=== PATIENT | male | born 1955 | race Caucasian/White ===

== ENCOUNTER 2020-05-15 08:54 | Inpatient (IN) | payer OTHER ==
[~2020-05-15] VITALS: Ht 185.4 cm; Wt 134.8 kg
[2020-05-15] MEDS ORDERED: LORazepam 2 MG/ML VIAL ONE ×2 (08:57→09:11)
[2020-05-15] MEDS ORDERED: ROCURONIUM BROMIDE 10 MG/ML 5 ML VIAL ONE (09:13)
[2020-05-15] MEDS ORDERED: IOVERSOL 350 MG/ML 150 ML VIAL ONE (09:13)
[2020-05-15] MEDS ORDERED: SODIUM CHLORIDE 0.9% 100 ML ONE (09:14)
[2020-05-15] MEDS ORDERED: FURO20 PO (09:14)
[2020-05-15] MEDS ORDERED: LISI-660 PO (09:14)
[2020-05-15 09:17] LABS: BASOPHILS % (AUTO) 0.8 % (0.0-2.0); EOSINOPHILS % (AUTO) 2.2 % (1.0-6.0); HEMATOCRIT 35.7 % (41-53); HEMOGLOBIN 11.5 g/dL (13.5-17.5); LYMPHOCYTES # (AUTO) 3.5 K/uL (1.0-4.8); LYMPHOCYTES % (AUTO) 43.3 % (22.0-44.0); MEAN CORPUSCULAR HEMOGLOBIN 31.1 pg (26.0-34.0); MEAN CORPUSCULAR HGB CONC 32.2 G/dL (31.0-37.0); MEAN CORPUSCULAR VOLUME 97 fL (80-100); MONOCYTES # (AUTO) 1.3 K/uL (0.1-1.0); MONOCYTES % (AUTO) 16.4 % (2.0-9.0); NEUTROPHILS % (AUTO) 37.3 % (40.0-70.0); PLATELET COUNT (AUTO) 250 K/uL (150-450)
[2020-05-15 09:20] LABS: CREATININE 2.57 mg/dL (0.60-1.30); POTASSIUM 3.9 mmol/L (3.5-5.1)
[2020-05-15 09:29] LABS: INR 1.1 (0.9-1.1); PROTHROMBIN TIME 11.5 SEC (9.4-11.6)
[2020-05-15 09:46] LABS: ALBUMIN 3.5 g/dL (3.4-5.0); BILIRUBIN,TOTAL 0.7 mg/dL (0.1-1.0); TOTAL PROTEIN, SERUM 7.6 g/dL (6.4-8.2)
[2020-05-15] MEDS ORDERED: PROPOFOL 1000 MG/ISO-OSM 100 ML IV ONE (09:53)
[2020-05-15 10:14] LABS: ABG A-A DIFF O2 498.4 mmHg (10-20.0); ABG BASE EXCESS -3.4 mmol/L (-2.0-3.0); ABG CARBOXYHEMOGLOBIN 0.4 % (0.0-1.5); ABG HCO3 21.5 mmol/L (22.0-26.0); ABG METHEMOGLOBIN 0.4 % (0.0-1.5); ABG OXYGEN CONTENT 16.1 mL/dL (15.0-23.0); ABG OXYHEMOGLOBIN 98.2 % (94.0-100.0); ABG PCO2 49 mmHg (35-45); ABG PH 7.293 (7.35-7.450); ABG TOTAL HEMOGLOBIN 11.4 G/dL (12.0-18.0); PO2, ARTERIAL BG 165.7 mmHg (79.0-87.0); SITE, BLOOD GAS RT RADIAL; SOURCE, BLOOD GAS ARTERIAL; TEMPERATURE, FAHRENHEIT, BG 98.6 FAHREN (96.0-98.6)
[2020-05-15 10:15] LABS: O2 DEVICE,BLOOD GAS VENTILATOR (ROOM AIR); PEEP,BG 5 cm H2O; VT, ABG 530 ml
[2020-05-15] MEDS ORDERED: LevETIRAcetam 1,000 MG in DEXTROSE 5%-WATER 100 ML IV ONE (10:15)
[2020-05-15] MEDS ORDERED: ASPIRIN 600 MG RECTAL SUPPOSITORY PR ONE (10:15)
[2020-05-15] MEDS ORDERED: LORazepam 2 MG/ML VIAL IM ONE (10:15)
[2020-05-15] MEDS ORDERED: SUCCINYLCHOLINE CHLORIDE 20 MG/ML 10 ML VIAL IVP ONE (10:15)
[2020-05-15] MEDS ORDERED: ETOMIDATE 2 MG/ML 10 ML VIAL IVP ONE (10:15)
[2020-05-15] MEDS ORDERED: LORazepam 2 MG/ML VIAL IVP ONE (10:15)
[2020-05-15] MEDS: PROPOFOL 1000 MG/ISO-OSM 100 ML IV PRN ×2 (10:20→13:21)
[2020-05-15] MEDS: NOREPINEPHRINE 4 MG/D5%-WATER 250 ML IV PRN ×2 (10:52→13:22)
[2020-05-15] MEDS ORDERED: DOPamine HCL 400 MG/D5%-WATER 250 ML IV ONE (11:10)
[2020-05-15] MEDS ORDERED: ATROPINE SULFATE 0.1 MG/ML 10 ML SYRINGE IVP ONE ×3 (11:10→11:15)
[2020-05-15] MEDS ORDERED: MIDAZOLAM HCL 100 MG in DEXTROSE 5%-WATER 180 ML IV PRN (11:15)
[2020-05-15 11:27] LABS: APPEARANCE,URINE CLEAR (CLEAR); BILIRUBIN,URINE NEGATIVE (NEGATIVE); GLUCOSE, URINE (UA) NEGATIVE (NEGATIVE); KETONES,URINE NEGATIVE (NEGATIVE); LEUKOCYTE ESTERASE ,URINE NEGATIVE (NEGATIVE); NITRATE,URINE NEGATIVE (NEGATIVE); OCCULT BLOOD,URINE TRACE (NEGATIVE); PROTEIN,URINE NEGATIVE (NEGATIVE); UROBILINOGEN,URINE 0.2 mg/dL (<=1.0)
[2020-05-15 11:45] LABS: BACTERIA,URINE None Seen /HPF (None Seen); SQUAMOUS EPITHELIAL CELL,UR Few /LPF (None Seen)
[2020-05-15] MEDS: DOPamine HCL 400 MG/D5%-WATER 250 ML IV PRN ×2 (12:03→13:55)
[2020-05-15] MEDS ORDERED: CefTRIAXone 1 GM/DEXTROSE 50 ML IV ONE (12:30)
[2020-05-15] MEDS ORDERED: AZITHROMYCIN 500 MG/NS 250 ML IV ONE (12:30)
[2020-05-15 12:42] LABS: COVID AG,FIA SOURCE NASOPHARYNGEAL
[2020-05-15 13:00] VITALS: BP 88/66
[2020-05-15] MEDS ORDERED: SODIUM CHLORIDE 0.9% 500 ML IV ONE (13:18)
[2020-05-15 16:00] VITALS: BP 101/58
[2020-05-15] MEDS: RINGERS SOLUTION,LACTATED 1,000 ML IV SCH (17:44)
[2020-05-15] MEDS ORDERED: ACETAMINOPHEN 325 MG TABLET PO PRN (18:15)
[2020-05-15] MEDS ORDERED: ONDANSETRON HCL 4 MG/2 ML VIAL IVP PRN (18:15)
[2020-05-15] MEDS ORDERED: IPRATROPIUM BROMIDE 0.5 MG/2.5 ML NEB SOLUTION NEB PRN (18:15)
[2020-05-15] MEDS ORDERED: ALBUTEROL SULFATE 2.5 MG/0.5 ML NEB SOLUTION NEB PRN (18:15)
[2020-05-15] MEDS ORDERED: MORPHINE SULFATE 2 MG/ML SYRINGE IVP PRN (18:15)
[2020-05-15] MEDS ORDERED: CefTRIAXone 1 GM/DEXTROSE 50 ML IV SCH (18:15)
[2020-05-15] MEDS ORDERED: ZOLPIDEM TARTRATE 5 MG TABLET PO PRN (18:15)
[2020-05-15] MEDS ORDERED: MAGNESIUM HYDROXIDE SUSPENSION 30 ML UDCUP PO PRN (18:15)
[2020-05-15] MEDS ORDERED: HYDROCODONE/ACETAMINOPHEN 5-325 MG TABLET PO PRN (18:15)
[2020-05-15] MEDS ORDERED: AZITHROMYCIN 500 MG/NS 250 ML IV SCH (18:15)
[2020-05-15] MEDS ORDERED: BISACODYL 10 MG RECTAL RECTAL SUPPOSITORY PR PRN (18:15)
[2020-05-15] MEDS ORDERED: SODIUM CHLORIDE 0.9% 1,000 ML IV SCH (18:15)
[2020-05-15 20:00] VITALS: BP 119/50
[2020-05-15] MEDS: DOCUSATE SODIUM 100 MG CAPSULE PO SCH (21:10)
[2020-05-15] MEDS ORDERED: VANCOMYCIN HCL 1 GM/D5% WATER 200 ML IV ONE ×2 (21:30→23:30)
[2020-05-16] VITALS: BP 142/89
[2020-05-16] MEDS: HEPARIN SODIUM,PORCINE 5,000 UNITS/ML VIAL SQ SCH ×2 (00:26→08:34)
[2020-05-16] MEDS: PIPERACILLIN/TAZO 3.375 GM/D5W 50 ML IV SCH ×3 (00:39→12:23)
[2020-05-16] MEDS ORDERED: NOREPINEPHRINE 4 MG/D5%-WATER 250 ML IV PRN (01:15)
[2020-05-16] MEDS ORDERED: PROPOFOL 1000 MG/ISO-OSM 100 ML IV PRN (01:15)
[2020-05-16] MEDS ORDERED: MIDAZOLAM HCL 100 MG in DEXTROSE 5%-WATER 180 ML IV PRN (03:30)
[2020-05-16] MEDS ORDERED: SODIUM CHLORIDE 0.9% 250 ML IV ONE (05:31)
[2020-05-16 05:44] LABS: BASOPHILS % (AUTO) 0.8 % (0.0-2.0); EOSINOPHILS % (AUTO) 1.3 % (1.0-6.0); HEMATOCRIT 33.1 % (41-53); HEMOGLOBIN 10.9 g/dL (13.5-17.5); LYMPHOCYTES # (AUTO) 1.5 K/uL (1.0-4.8); LYMPHOCYTES % (AUTO) 22.7 % (22.0-44.0); MEAN CORPUSCULAR HEMOGLOBIN 31.2 pg (26.0-34.0); MEAN CORPUSCULAR HGB CONC 32.9 G/dL (31.0-37.0); MEAN CORPUSCULAR VOLUME 95 fL (80-100); MONOCYTES # (AUTO) 0.9 K/uL (0.1-1.0); MONOCYTES % (AUTO) 13.7 % (2.0-9.0); NEUTROPHILS # (AUTO) 4.1 K/uL (1.8-7.7); NEUTROPHILS % (AUTO) 61.5 % (40.0-70.0); PLATELET COUNT (AUTO) 207 K/uL (150-450); RED BLOOD CELL COUNT(AUTO) 3.49 MIL/uL (4.50-5.90); RED CELL DISTRIBUTION WIDTH 16.1 % (11.5-14.5)
[2020-05-16 06:02] LABS: ALBUMIN 3.1 g/dL (3.4-5.0); BILIRUBIN,TOTAL 0.7 mg/dL (0.1-1.0); CALCIUM, TOTAL 8.9 mg/dL (8.8-10.5); CREATININE 2.26 mg/dL (0.60-1.30); POTASSIUM 3.2 mmol/L (3.5-5.1); TOTAL PROTEIN, SERUM 6.9 g/dL (6.4-8.2)
[2020-05-16] MEDS: RINGERS SOLUTION,LACTATED 1,000 ML IV SCH (06:58)
[2020-05-16 08:00] VITALS: BP 134/74
[2020-05-16] MEDS: DOCUSATE SODIUM 100 MG CAPSULE PO SCH (09:00)
[2020-05-16] MEDS ORDERED: VANCOMYCIN HCL 1.5 GM in DEXTROSE 5%-WATER 250 ML IV ONE (09:30)
[2020-05-16 12:00] VITALS: BP 94/63
[2020-05-16] MEDS ORDERED: POTASSIUM CHL 10 MEQ/WATER 100 ML IV ONE (14:32)
[2020-05-16] MEDS: POTASSIUM CHL 10 MEQ/WATER 50 ML IV SCH ×2 (14:39→15:14)
[2020-05-16] MEDS ORDERED: ETOMIDATE 2 MG/ML 10 ML VIAL ONE (17:38)
[2020-05-16] MEDS ORDERED: SUCCINYLCHOLINE CHLORIDE 20 MG/ML 10 ML VIAL ONE (17:38)
[2020-05-16] MEDS ORDERED: ATROPINE SULFATE 0.1 MG/ML 10 ML SYRINGE IVP ONE (17:38)
[2020-05-17] MEDS ORDERED: VANCOMYCIN HCL 1.5 GM in DEXTROSE 5%-WATER 250 ML IV SCH (08:00)
== END 2020-05-16 16:20 | disposition short-term general hospital (02) | DRG 64 ==
LOC: EMS 08:56 → EDBD 08:56 → ICU 11:18
PROVIDERS: ADMIT Internal Medicine; ATTEND Internal Medicine
PROC: 5A1945Z Respiratory Ventilation, 24-96 Consecutive Hours (ICD-10-PCS; principal; 2020-05-15)
PROC: 0BH17EZ Insertion of Endotracheal Airway into Trachea, Via Natural or Artificial Opening (ICD-10-PCS; 2020-05-15)
PROC: 05HM33Z Insertion of Infusion Device into Right Internal Jugular Vein, Percutaneous Approach (ICD-10-PCS; 2020-05-15)
PROC: B543ZZA Ultrasonography of Right Jugular Veins, Guidance (ICD-10-PCS; 2020-05-15)
DX: I63.9 Cerebral infarction, unspecified (principal); J96.00 Acute respiratory failure, unspecified whether with hypoxia or hypercapnia; J18.9 Pneumonia, unspecified organism; N17.9 Acute kidney failure, unspecified; J91.8 Pleural effusion in other conditions classified elsewhere; I95.9 Hypotension, unspecified; E66.01 Morbid (severe) obesity due to excess calories; R56.9 Unspecified convulsions; Z68.39 Body mass index [BMI] 39.0-39.9, adult; I11.0 Hypertensive heart disease with heart failure; I50.9 Heart failure, unspecified; R29.700 NIHSS score 0; Z20.828 Contact with and (suspected) exposure to other viral communicable diseases
CPT/HCPCS: 31500; 36600; 70496; 71250; 82805; 87040; 87081; 87426; 93005; 93306; 93970; 94002; 94003; 99291; G0378; G0480; J0330; J0456; J0461; J0696; J0712; J1265; J1644; J2060; J2250; J2543; J2704; J3370; J3480; J3490; J7040; J7050; J7060; J7120; 36415-L1; 36415-TC; 70450; 70450-TC; 71045-TC